=== PATIENT | female | born 1960 | race Two or more races ===

== ENCOUNTER 2019-06-16 11:33 | Inpatient (IN) | payer MEDICARE, MEDICAID ==
[~2019-06-16] VITALS: Ht 154.9 cm; Wt 53.5 kg
--- NOTE | 2019-06-16 11:38 | NUR ---
PT [id number], FROM HOME, C/O NAUSEA VOMITING SINCE THIS MORNING, PT IS AAOX4, NOT IN RESPIRATORY DISTRESS, HOOKED TO MONITOR, KEPT RESTED AND COMFORTABLE, WILL CONTINUE TO MONITOR.
--- NOTE | 2019-06-16 11:56 | NUR ---
IV LINE ESTABLISHED, BLOOD DRAWNED AND SENT TO LAB.
--- NOTE | 2019-06-16 12:29 | NUR ---
SEEN AND EXAMINED BY HUNG FOLEY
[2019-06-16] MEDS ORDERED: ONDANSETRON HCL/PF 4 MG/2 ML VIAL IVP ONE (12:30)
[2019-06-16] MEDS ORDERED: IV NS 0.9% 1,000 ML BAG IV ONE ×2 (12:30→13:30)
[2019-06-16] MEDS ORDERED: ONDANSETRON HCL/PF 4 MG/2 ML VIAL ONE ×2 (12:31→17:28)
[2019-06-16 12:37] LABS: BASOPHILS # (AUTO) 0.1 /CMM (0.0-0.2); BASOPHILS % (AUTO) 0.8 % (0.0-2.0); EOSINOPHILS % (AUTO) 1.2 % (0.0-6.0); HEMATOCRIT 37 % (33-45); HEMOGLOBIN 12.6 g/dL (11.5-14.8); LYMPHOCYTES # (AUTO) 2.5 /CMM (0.8-4.8); LYMPHOCYTES % (AUTO) 34.6 % (20.0-44.0); MEAN CORPUSCULAR HGB CONC 34 g/dl (31.0-36.0); MEAN CORPUSCULAR VOLUME 90 fL (82-100); MONOCYTES # (AUTO) 0.4 /CMM (0.1-1.30); MONOCYTES % (AUTO) 6.1 % (2.0-12.0); NEUTROPHILS # (AUTO) 4.1 /CMM (1.8-8.9); NEUTROPHILS % (AUTO) 57.3 % (43.0-81.0); PLATELET COUNT (AUTO) 306 /CMM (150-450); RED BLOOD CELL COUNT(AUTO) 4.09 MIL/uL (4.0-5.2); WHITE BLOOD COUNT (AUTO) 7.2 K/uL (4.3-11.0)
--- NOTE | 2019-06-16 12:40 | NUR ---
PT IS WHEELED TO CT SCAN VIA [facility].
[2019-06-16 12:44] LABS: CALCIUM, SERUM 9.3 mg/dL (8.5-10.1); CREATININE 0.8 mg/dL (0.6-1.3); POTASSIUM 3.6 mmol/L (3.5-5.1)
[2019-06-16 12:53] LABS: ALBUMIN 4.2 g/dL (3.4-5.0); BILIRUBIN,DIRECT 0.1 mg/dL (0.0-0.2); BILIRUBIN,TOTAL 0.3 mg/dL (0.2-1.0); TOTAL PROTEIN, SERUM 7.6 g/dL (6.4-8.2)
--- NOTE | 2019-06-16 14:00 | NUR ---
URINE SPECIMEN COLLECTED AND SENT TO LAB.
[2019-06-16 14:02] LABS: APPEARANCE,URINE Clear (CLEAR); BILIRUBIN,URINE Negative (NEGATIVE); BLOOD, URINE Trace-lysed Ery/uL (NEGATIVE); COLOR,URINE Yellow (YELLOW); KETONES,URINE Negative (NEGATIVE); LEUKOCYTE ESTERASE ,URINE Negative (NEGATIVE); NITRITE, URINE Negative (NEGATIVE); PH,URINE 6.5 (5.0-8.0); PROTEIN,URINE Negative (NEGATIVE); UGLUCOSE Negative (NEGATIVE); UROBILINOGEN,URINE 0.2 EU/dL (0.2)
[2019-06-16 14:08] LABS: BACTERIA,URINE None seen /HPF (None Seen); SQUAMOUS EPITHELIAL CELL,UR Few /HPF (None Seen); WBC,URINE 0-3 /HPF (0-3)
[2019-06-16] MEDS ORDERED: DIAZEPAM 5 MG TABLET ONE (14:25)
[2019-06-16] MEDS ORDERED: DIAZEPAM 10 MG TABLET PO ONE (14:30)
[2019-06-16] MEDS ORDERED: MECLIZINE HCL 12.5 MG TABLET PO ONE (16:00)
[2019-06-16] MEDS ORDERED: MECLIZINE HCL 25 MG TABLET ONE (16:18)
[2019-06-16] MEDS ORDERED: CELE-85 PO (17:05)
[2019-06-16] MEDS ORDERED: DEXL60CA3 PO (17:05)
[2019-06-16] MEDS ORDERED: IBUP-1953 PO (17:05)
--- NOTE | 2019-06-16 17:18 | NUR ---
REPORT GIVEN TO ANEESH DE LA GARZA FOR ANTOINE.
[2019-06-16] MEDS ORDERED: ONDANSETRON HCL/PF 4 MG/2 ML VIAL IV ONE (17:30)
[2019-06-16] MEDS ORDERED: ZOLPIDEM TARTRATE 5 MG TABLET PO PRN (19:00)
[2019-06-16] MEDS ORDERED: HYDROCODONE/APAP 5/325MG 1 EACH TABLET PO PRN (19:00)
[2019-06-16] MEDS ORDERED: IOHEXOL-350 100 ML VIAL IV ONE (19:00)
[2019-06-16] MEDS ORDERED: IV NS 0.9% 250 ML IV ONE (19:00)
[2019-06-16] MEDS ORDERED: CT SWABBABLE VALVE TRANS SET 1 EA INFUS.SET MC ONE (19:00)
[2019-06-16] MEDS ORDERED: Z GUARD REMEDY 2 OZ OINT TP PRN (19:00)
[2019-06-16] MEDS ORDERED: MAG HYDROX/AL HYDROX/SIMETH 30 ML UDC PO PRN (19:00)
[2019-06-16] MEDS ORDERED: MAGNESIUM HYDROXIDE 30 ML UDC PO PRN (19:00)
[2019-06-16] MEDS ORDERED: ONDANSETRON HCL/PF 4 MG/2 ML VIAL IVP PRN (19:00)
--- NOTE | 2019-06-16 19:04 | NUR ---
PT IS WHEELED TO CT SCAN.
[2019-06-16 20:00] VITALS: BP 119/57
--- NOTE | 2019-06-16 20:00 | NUR ---
MS RN NOTE: PT ADMITTED FROM ER VIA [facility] WITH ADMITTING DIAGNOSIS OF COLITIS. PT IS ALERT AND ORIENTED X3. FAMILY AT BEDSIDE. NO APPARENT DISTRESS NOTED. DENIES PAIN AND DISCOMFORT AT THIS TIME. ON ROOM AIR NO SOB NOTED. IV ON LEFT ANTECUBITAL #18 INTACT AND PATENT, FLUSHING WELL. PERTINENT ASSESSMENTS DONE. ABRASION NOTED ON LEFT KNEE, PICTURE TAKEN AND PLACED ON CHART. KEPT CLEAN, DRY AND COMFORTABLE. SAFETY AND FALL PRECAUTIONS OBSERVED AND MAINTAINED. CALL LIGHT PLACED WITHIN REACH. WILL CONTINUE TO MONITOR PT.
[2019-06-16] MEDS: IV D5W 1,000 ML IV PRN (20:26)
[2019-06-16] MEDS: LEVOFLOXACIN 500 MG /D5W 100ML 500 MG in PREMIX 1 EA IV SCH (20:27)
[2019-06-16] MEDS: MECLIZINE HCL 25 MG TABLET PO SCH (21:39)
[2019-06-16] MEDS: ACETAMINOPHEN 325 MG TABLET PO PRN (22:26)
--- NOTE | 2019-06-17 01:30 | NUR ---
MS RN NOTE: PT REQUESTED FOR AMBIEN BUT CHANGED HER MIND WHEN I WAS GIVING HER THE MEDICATION AND REFUSED IT. WILL CONTINUE TO MONITOR PT.
[2019-06-17 04:00] VITALS: BP 111/65
[2019-06-17] MEDS: MECLIZINE HCL 25 MG TABLET PO SCH ×5 (04:32→23:17)
--- NOTE | 2019-06-17 07:14 | NUR ---
MS RN OPENING NOTE RECEIVED REPORT FROM [facility] SHIFT NURSE. PT ASLEEP IN BED, ON ROOM AIR, SATURATING WELL, NO SIGNS AND SYMPTOMS OF RESPIRATORY DISTRESS NOTED. LEFT AC G18 INFUSING D5W AT 75ML/HR, NO SING OF INFILTRATION NOTED. BED IN LOW POSITION, LOCKED, CALL LIGHT WITHIN REACH.
--- NOTE | 2019-06-17 07:25 | NUR ---
MS RN NOTE: NO CHANGES NOTED THROUGHOUT THE SHIFT. NO APPARENT DISTRESS NOTED. NO NAUSEA AND VOMITING NOTED BUT PT STILL COMPLAINTS OF DIZZINESS. EMPHASIZED THE NEED FOR BEDREST FOR NOW, BUT PT INSIST TO WALK TO THE BATHROOM EVEN IF SHE'S FEELING DIZZY. AMBULATED TO THE BATHROOM WITH ASSIST. SAFETY AND FALL PRECAUTIONS OBSERVED AND MAINTAINED. ENDORSE TO DAY SHIFT RN FOR CONTINUITY OF CARE
[2019-06-17 08:00] VITALS: BP 113/71
[2019-06-17 08:09] LABS: BASOPHILS % (AUTO) 0.4 % (0.0-2.0); EOSINOPHILS % (AUTO) 0.8 % (0.0-6.0); HEMATOCRIT 37 % (33-45); HEMOGLOBIN 12.5 g/dL (11.5-14.8); LYMPHOCYTES # (AUTO) 2.9 /CMM (0.8-4.8); LYMPHOCYTES % (AUTO) 34.6 % (20.0-44.0); MEAN CORPUSCULAR HGB CONC 34 g/dl (31.0-36.0); MEAN CORPUSCULAR VOLUME 90 fL (82-100); MONOCYTES # (AUTO) 0.8 /CMM (0.1-1.30); NEUTROPHILS # (AUTO) 4.5 /CMM (1.8-8.9); NEUTROPHILS % (AUTO) 54.2 % (43.0-81.0); PLATELET COUNT (AUTO) 270 /CMM (150-450); RED BLOOD CELL COUNT(AUTO) 4.14 MIL/uL (4.0-5.2); WHITE BLOOD COUNT (AUTO) 8.3 K/uL (4.3-11.0)
[2019-06-17 08:17] LABS: CALCIUM, SERUM 9.3 mg/dL (8.5-10.1); CREATININE 0.8 mg/dL (0.6-1.3); PHOSPHORUS 3.5 mg/dL (2.5-4.9); POTASSIUM 3.9 mmol/L (3.5-5.1)
[2019-06-17 08:26] LABS: THYROID STIMULATING HORMONE 4.019 uIU/mL (0.358-3.74)
[2019-06-17 12:00] VITALS: BP 116/64
[2019-06-17] MEDS: IV D5W 1,000 ML IV PRN (12:04)
[2019-06-17 16:00] VITALS: BP 100/63
--- NOTE | 2019-06-17 18:20 | NUR ---
MS RN CLOSING NOTE PT AWAKE IN BED, ALERT AND ORIENTED X 4, ON ROOM AIR, SATURATING WELL, NO SIGNS OF RESPIRATORY DISTRESS NOTED, RESPIRATIONS EASY AND UNLABORED. LEFT AC G18 INFUSING D5W AT 75ML/HR, LINE IS PATENT, NO SIGNS OF INFILTRATION NOTED. PROVIDED SAFETY AND COMFORT TO PT THROUGHOUT SHIFT, ALL DUE MEDS GIVEN. FAMILY BY BEDSIDE. WILL ENDORSE TO NOC SHIFT NURSE.
--- NOTE | 2019-06-17 19:25 | NUR ---
MS/RN NOTES PATIENT IN BED, ALERT AND AWAKE, WATCHING TV. FAMILY AT BED SIDE. NO S/S OF ACUTE DISTRESS NOTED, RESPIRATION EVEN AND UNLABORED. NO SOB NOTED. PATIENT A/O X 4, DENIES ANY PAIN AT THIS TIME. LEFT AC G18 INFUSING WITH FLUIDS ORDERED, NO S/S OF INFECTION, INFILTRATION NOTED AT THE SITE. SAFETY MAINTAINED, BED AT THE LOWEST LOCKED POSITION. CALL LIGHT WITHIN REACH. WILL CONTINUE TO MONITOR PER PLAN OF CARE.
[2019-06-17 20:00] VITALS: BP 104/62
[2019-06-17] MEDS: LEVOFLOXACIN 500 MG /D5W 100ML 500 MG in PREMIX 1 EA IV SCH (20:23)
[2019-06-18] MEDS: IV D5W 1,000 ML IV PRN (01:36)
[2019-06-18 04:00] VITALS: BP 92/53
[2019-06-18] MEDS: MECLIZINE HCL 25 MG TABLET PO SCH ×3 (05:02→17:44)
--- NOTE | 2019-06-18 06:52 | NUR ---
MS/RN NOTES PATIENT IN BED, SLEEPING AT THIS TIME, NO S/S OF ACUTE DISTRESS NOTED, RESPIRATION EVEN AND UNLABORED. NO SOB NOTED. NO S/S OF PAIN OR DISCOMFORT NOTED. ALL DUE MEDS GIVEN ORDERED, PATIENT TOLERATED WELL. LEFT WRIST G20 INFUSING WITH FLUIDS ORDERED, NO S/S OF INFECTION, INFILTRATION NOTED AT THE SITE. SAFETY MAINTAINED, BED AT THE LOWEST LOCKED POSITION. CALL LIGHT WITHIN REACH. WILL ENDORSE TO AM SHIFT NURSE FOR ANTOINE.
--- NOTE | 2019-06-18 07:19 | NUR ---
MS/RN NOTES PATIENT IN BED, RESTING COMFORTABLY AT THIS TIME, NO S/S OF ACUTE DISTRESS NOTED, RESPIRATION EVEN AND UNLABORED. NO SOB NOTED. NO S/S OF PAIN OR DISCOMFORT NOTED. . LEFT WRIST G20 INFUSING WITH IV FLUIDS ORDERED, NO S/S OF INFECTION, INFILTRATION NOTED AT THE SITE. SAFETY MAINTAINED, BED AT THE LOWEST LOCKED POSITION. CALL LIGHT WITHIN REACH. WILL CONT TO MONITOR
[2019-06-18 08:00] VITALS: BP_SYST 100; BP_SYST 102; BP_DIAS 60; BP_DIAS 63
--- NOTE | 2019-06-18 10:05 | NUR ---
MS RN NOTE SEEN B DR TAN NOTIFIED HT PATIENT C\O PAIN LT SIDE OF RIB . PATIENT REFUSED TO DO X RAY , PER DR TAN OK TO DISCHARGE HOME WITH PX AND F\U WITH ENT DOCTOR AYLIN, ORDER CARRIED OUT
[2019-06-18] MEDS: ACETAMINOPHEN 325 MG TABLET PO PRN (13:49)
--- NOTE | 2019-06-18 14:19 | NUR ---
ms rn note Tenol for lt side pain on rib given as ordered
[2019-06-18 16:00] VITALS: BP 108/67
--- NOTE | 2019-06-18 17:10 | NUR ---
MS RN NOTE D\C INSTRUCTION GIVEN, UNDERSTOOD , NEW PX GIVEN AND INSTRUCTED HOW TO TAKE AND POSSIBLE SIDE EFFECTS ALSO INSTRUCTED TO CONT HOME MEDS AND POSSIBLE SIDE EFFECTS , PATIENT IS BEING EXPLAINED TO F\U WITH PRIMARY CARE DOCTOR AND ENT AND TAKE ATB ORDERED ,BELONGING SIGNED , AWAITING FOR DAUGHTER TO COSMETIC ASSEMBLER
--- NOTE | 2019-06-18 19:08 | NUR ---
MS RN NOTE HL REMOVED ON LT WRIST , NO BLEEDING NO S\S INFECTION NOTED . TAKEN TO LOBBY ON W\C WITH EELER , WENT HOME WITH STABLE CONDITION WITH DAUGHTER
[2019-06-18] MEDS ORDERED: LEVOFLOXACIN (500MG) 500 MG TABLET PO SCH (20:00)
== END 2019-06-18 19:00 | disposition home or self-care (01) | DRG 373 ==
LOC: ER 11:40 → TELE1 17:35 → MEDSG1 20:02
PROVIDERS: ADMIT Internal Medicine; ATTEND Internal Medicine
DX: A04.9 Bacterial intestinal infection, unspecified (principal); H81.09 Meniere's disease, unspecified ear; H81.10 Benign paroxysmal vertigo, unspecified ear; Z87.11 Personal history of peptic ulcer disease; E03.9 Hypothyroidism, unspecified; H93.19 Tinnitus, unspecified ear
CPT/HCPCS: 36415; 70450-TC; 70498-TC; 80048-TC; 80061-TC; 80076-TC; 81000-TC; 83690-TC; 83735-TC; 84100-TC; 84439-TC; 84443-TC; 85025-TC; 87081-TC; A4216; G0378; J1956; J2405; J7030; J7050; J7060; J8597; Q9967

== ENCOUNTER 2019-07-25 07:56 | Emergency (ER) | payer MEDICARE, MEDICAID ==
[~2019-07-25] VITALS: Ht 152.4 cm; Wt 56.5 kg
[~2019-07-25 07:56] MED LIST: CELE-85 PO; DEXL60CA3 PO; IBUP-1953 PO
[2019-07-25] MEDS ORDERED: diphenhydrAMINE HCL 50 MG/ML VIAL ONE (08:20)
[2019-07-25] MEDS ORDERED: ONDANSETRON HCL/PF 4 MG/2 ML VIAL ONE (08:21)
[2019-07-25 08:25] LABS: BASOPHILS # (AUTO) 0.1 /CMM (0.0-0.2); BASOPHILS % (AUTO) 0.7 % (0.0-2.0); EOSINOPHILS % (AUTO) 1.6 % (0.0-6.0); HEMATOCRIT 35 % (33-45); HEMOGLOBIN 11.7 g/dL (11.5-14.8); LYMPHOCYTES # (AUTO) 3.5 /CMM (0.8-4.8); LYMPHOCYTES % (AUTO) 32.1 % (20.0-44.0); MEAN CORPUSCULAR HGB CONC 33 g/dl (31.0-36.0); MEAN CORPUSCULAR VOLUME 90 fL (82-100); MONOCYTES # (AUTO) 0.8 /CMM (0.1-1.30); MONOCYTES % (AUTO) 7.1 % (2.0-12.0); NEUTROPHILS # (AUTO) 6.4 /CMM (1.8-8.9); NEUTROPHILS % (AUTO) 58.5 % (43.0-81.0); PLATELET COUNT (AUTO) 294 /CMM (150-450)
[2019-07-25] MEDS ORDERED: ONDANSETRON HCL/PF 4 MG/2 ML VIAL IVP ONE (08:30)
[2019-07-25] MEDS ORDERED: IV NS 0.9% 1,000 ML BAG IV ONE (08:30)
[2019-07-25] MEDS ORDERED: diphenhydrAMINE HCL 50 MG/ML VIAL IV ONE (08:30)
[2019-07-25 08:31] LABS: CALCIUM, SERUM 8.8 mg/dL (8.5-10.1); CREATININE 0.7 mg/dL (0.6-1.3); POTASSIUM 3.7 mmol/L (3.5-5.1)
--- NOTE | 2019-07-25 09:24 | NUR ---
PATIENT AWAKE ALERT HER DAUGHTER @ BEDSIDE PATIENT STATED FEELS BETTER LESS DIZZY VITALS,CONTINUE TO MONITOR
--- NOTE | 2019-07-25 09:53 | NUR ---
IV removed. Catheter intact and site benign. Pressure and 4x4 applied to site. No bleeding noted.Patient discharged to home in stable condition. Written and verbal after care instructions given. Patient verbalizes understanding of instruction.
--- NOTE | 2019-07-25 09:57 | NUR ---
PATIENT AWAKE ALERT DC HOME INTRUCTION NOTED PATIENT ABLE TO AMBULATE NON DIFFICUTIES
--- NOTE | 2019-07-25 09:58 | NUR ---
Patient discharged to home in stable condition. Written and verbal after care instructions given. Patient verbalizes understanding of instruction.
[2019-07-25 09:59] VITALS: BP 78/123
== END 2019-07-25 10:02 | disposition home or self-care (01) ==
LOC: ER 08:04
DX: R42 Dizziness and giddiness (principal); R11.2 Nausea with vomiting, unspecified; Z88.0 Allergy status to penicillin; Z88.1 Allergy status to other antibiotic agents; Z79.899 Other long term (current) drug therapy
CPT/HCPCS: 36415; 80048; 85025; 96374; 96375; 99283; J1200; J2405; J7030

== ENCOUNTER 2021-10-10 13:33 | Emergency (ER) | payer MEDICARE, OTHER ==
[~2021-10-10] VITALS: Ht 157.5 cm; Wt 52.2 kg
[2021-10-10 14:09] VITALS: BP 114/69
[2021-10-10] MEDS ORDERED: diphenhydrAMINE HCL 50 MG CAPSULE PO ONE (15:00)
[2021-10-10] MEDS ORDERED: predniSONE 10 MG TABLET PO ONE (15:00)
[2021-10-10] MEDS ORDERED: FAMOTIDINE (20 MG) 20 MG TABLET PO ONE (15:00)
[2021-10-10] MEDS ORDERED: predniSONE 20 MG TABLET ONE (15:06)
[2021-10-10] MEDS ORDERED: diphenhydrAMINE HCL 50 MG CAPSULE ONE (15:06)
[2021-10-10] MEDS ORDERED: FAMOTIDINE (20 MG) 20 MG TABLET ONE (15:07)
[2021-10-10] MEDS ORDERED: CETI-90 PO (15:47)
[2021-10-10] MEDS ORDERED: PRED20TA PO (15:47)
[2021-10-10] MEDS ORDERED: cetrizine 10 MG TABLET PO ONE (16:00)
[2021-10-10] MEDS ORDERED: cetrizine 10 MG TABLET ONE (16:08)
== END 2021-10-10 16:10 | disposition home or self-care (01) ==
LOC: EDUNIT# 13:33 → ER 13:34
DX: L50.0 Allergic urticaria (principal); Z88.0 Allergy status to penicillin; Z88.1 Allergy status to other antibiotic agents; Z79.899 Other long term (current) drug therapy
CPT/HCPCS: 99284; J7512; Q0163